=== PATIENT | female | born 1965 | race Caucasian/White ===

== ENCOUNTER 2016-09-26 17:22 | Emergency (ER) | payer OTHER ==
[~2016-09-26] VITALS: Ht 170.2 cm; Wt 102.1 kg
[2016-09-26] MEDS ORDERED: IV NORMAL SALINE 1,000ML 1,000 ML ONE (17:42)
[2016-09-26] MEDS ORDERED: ONDANSETRON PF 4 MG/2 ML VIAL. ONE (17:43)
[2016-09-26] MEDS ORDERED: ONDANSETRON PF 4 MG/2 ML VIAL. IV ONE (18:00)
[2016-09-26] MEDS ORDERED: IV NORMAL SALINE 1,000ML 1,000 ML IV ONE (18:00)
[2016-09-26 18:01] LABS: BASO % 1 % (0-3); EOS % 1 % (0-3); HEMATOCRIT 42.4 % (36.0-47.0); HEMOGLOBIN 14.5 g/dL (12.0-15.5); LYMPH # 1.5 x10^3/uL (1.0-4.8); LYMPH % 19 % (24-48); MEAN CORPUSCULAR HEMOGLOBIN 29 pg (25-35); MEAN CORPUSCULAR HGB CONC 34 g/dL (31-37); MEAN CORPUSCULAR VOLUME 85 fL (79-100); MONO # 0.3 x10^3/uL (0.0-1.1); MONO % 4 % (0-9); NEUT # 6.4 x10^3uL (1.8-7.7); NEUT % 76 % (31-73); PLATELET COUNT 240 x10^3/uL (140-400); RED CELL DISTRIBUTION WIDTH 13.9 % (11.5-14.5); WHITE BLOOD COUNT 8.3 x10^3/uL (4.0-11.0)
--- NOTE | 2016-09-26 18:07 | PHYS DOC ---
General Chief Complaint: ABDOMINAL PAIN Stated Complaint: ABDOMINAL PAIN Time Seen by MD: 17:56 Source: patient Problems: History of Present Illness Initial Comments Patient here for abdominal pain and vomiting. Patient says started about 11:00 today. Pain is located in the epigastric area. She says constant. She's never had pain like this before. She says she had multiple episodes of vomiting, too many to count. There is no blood or bilious material. She's been unable tolerate any by mouth food or fluids today. She's had no real fever or chills. She denies some cough, sore throat, runny nose last several days, but that's actually better today. She denies any chest pain or shortness of breath. She does have the nausea vomiting abdominal pain as described. There is no change in bowel or bladder habits. Her last period was 2 weeks ago. She denies chance of . She is no focal extremity or neurologic complaints. Patient said she felt slightly better after hot baths and hot packs the abdomen did not help. There is no other increasing or decreasing factors and she is done nothing else at home for this. There is no known sick contacts and no bad or spoiled food that she knows of. Asked medical history is otherwise unremarkable. She is a nonsmoker and nonuser of ethanol. She drinks 1-2 cups of coffee daily. She is not significant user T, soda, energy drinks, or aspirins or NSAID medication. There is no family history of ulcer or gallbladder disease. Allergies: Coded Allergies: No Known Drug Allergies (Unverified , 09/26/16) Past Medical History Medical History: no pertinent history Surgical History: other Social History Smoker: non-smoker Alcohol: none Review of Systems All Other Systems: Reviewed and Negative Physical Exam General Appearance: WD/WN, moderate distress Ear, Nose, Throat: normal ENT inspection, normal pharynx Neck: full range of motion, supple, normal inspection Respiratory: lungs clear, normal breath sounds, no respiratory distress Cardiovascular: regular rate, rhythm, no edema Gastrointestinal: soft, no organomegaly, tenderness Back: no CVA tenderness, no vertebral tenderness Extremities: non-tender, normal inspection, no pedal edema Neurologic/Psychiatric: alert, normal mood/affect, oriented x 3 Skin: normal color Lymphatic: no adenopathy Comments Generally this is a moderately obese white female who does look to be mild to moderately uncomfortable with nausea and abdominal pain. Vitals are as noted. Pertinent findings on physical exam shows the neck is supple without adenopathy or JVD. There's no meningeal signs. Chest is clear and cardiac vascular exams unremarkable. The abdomen is soft. She is tender in the epigastric area, mildly so in the right upper quadrant, without masses, organomegaly, or perineal findings. Back shows no CVA tenderness. Extremities are clear. She is awake alert oriented, mildly anxious, but cooperative with exam. Remainder of physical exam is clinically unremarkable. Orders, Labs, Meds Old charts note a single prior ER visit for left arm and elbow pain. CBC and CMP today are clinically unremarkable. Liver function tests are not markedly elevated. Abdominal series films show no acute changes per the emergency physician. Right upper quadrant shows large stones within the gallbladder neck along with signs of acute cholecystitis. There is also dilated common bile duct the possibility of a distal obstructing stone not excluded per radiology. 2100 Patient resting comfortably in the ED. She really had minimal relief with the first dose of fentanyl and Zofran, following Phenergan she's had no further vomiting, and following a second dose of fentanyl she is able to get some rest. I discussed with the patient and her would later arrived in the room the most likely diagnosis of cholecystitis with cholelithiasis. I think there is some possibility of distal biliary tree obstruction, though fortunately her liver tests are not markedly elevated. Given her level of discomfort, think she' ll require admission. The patient and her are agreeable to same. I did discuss with her that since she may require surgical or GI endoscopy care, these are services we will cannot provide here and may be best to transfer her to [place]. They voiced understanding and agreement. I did discuss the case with Dr. Weinstein who concurred that we should send the patient to [place] [facility]. I spoke with Dr. Rodriguez at [facility] who graciously agrees to accept the patient for admission. I will complete transfer paperwork. She is resting comfortably at this time awaiting transfer to [place] and definitive care. ANDREI RICE MD Sep 26, 2016 18:07
[2016-09-26 18:15] LABS: ALBUMIN 4.2 g/dL (3.4-5.0); ALBUMIN/GLOBULIN RATIO 1.1 (1.0-1.7); CALCIUM 9.1 mg/dL (8.5-10.1); CREATININE 0.9 mg/dL (0.6-1.0); GFR 66.5; POTASSIUM 4.1 mmol/L (3.5-5.1); TOTAL BILIRUBIN 0.5 mg/dL (0.2-1.0); TOTAL PROTEIN 8.2 g/dL (6.4-8.2)
[2016-09-26] MEDS ORDERED: PROMETHAZINE 12.5 MG in IV NORMAL SALINE 50ML 50 ML IV PRN (18:15)
[2016-09-26] MEDS ORDERED: FENTANYL PF 100 MCG/2 ML VIAL. ONE (18:16)
[2016-09-26] MEDS ORDERED: PROMETHAZINE 25 MG/ML VIAL IV ONE (18:16)
[2016-09-26] MEDS ORDERED: FENTANYL PF 100 MCG/2 ML VIAL. IV ONE ×3 (18:30→22:30)
[2016-09-26] MEDS ORDERED: IV NORMAL SALINE 100ML 0 ML ONE (18:33)
[2016-09-26] MEDS ORDERED: IV NORMAL SALINE 50ML 50 ML ONE (18:34)
--- NOTE | 2016-09-26 19:30 | RAD ---
PROCEDURE Abdomen sonogram limited. HISTORY Pain. TECHNIQUE Sonographic imaging of the abdomen was performed. COMPARISON None. FINDINGS The liver is upper normal in size. There is hepatic steatosis. No focal hepatic lesion is seen. There is common bile duct dilatation, measuring 8.6 mm. There is a large stone within the gallbladder neck, measuring approximately 3.1 cm. There is gallbladder sludge. The gallbladder is distended and there is gallbladder wall thickening, measuring 5.7 mm. There is a positive sonographic Galarza sign. The right kidney is unremarkable. The inferior vena cava is patent. The pancreas is obscured due to bowel gas. IMPRESSION 1. Large stone within the gallbladder neck with superimposed gallbladder sludge, gallbladder distention, gallbladder wall thickening and a positive sonographic Galarza sign, suggesting cholecystitis. 2. Dilated common bile duct. The possibility of a distal obstructing etiology is not excluded. 3. Hepatic steatosis. Electronically signed by: Kitty Farias (Sep 26, 2016 19:29:25)
[2016-09-26 20:29] VITALS: BP 133/72
[2016-09-26] MEDS ORDERED: AMPICILLIN/SULBACTAM 3 GM in IV NORMAL SALINE 100ML 100 ML IV ONE (21:30)
--- NOTE | 2016-09-27 08:31 | RAD ---
Indication abdominal pain. Nausea and vomiting. Supine and upright films of the abdomen were obtained. No similar imaging is available. The lung bases are clear. The abdominal gas pattern is normal. No organomegaly or abnormal calculi are seen. The visualized bony structures appear grossly intact. IMPRESSION: Normal plain films of the abdomen
--- NOTE | 2016-09-27 12:17 | EKG ---
[address] [address] Test Date: 2016-09-26 Test Time: 18:17:16 Pat Name: RO FARIAS Department: Room: Gender: F Commercial Electrician: NUBIA : 1965 Requested By: ANDREI RICE Order Number: [id number] Reading MD: Aleks Lane Measurements Intervals [place] Rate: 63 P: MT: QRS: 78 QRSD: 80 T: 73 QT: 418 QTc: 431 Interpretive Statements SINUS RHYTHM Electronically Signed On 10-04-2016 14:10:[address]
== END 2016-09-26 22:16 | disposition short-term general hospital (02) ==
LOC: ER 17:22
DX: R10.13 Epigastric pain (principal); R11.2 Nausea with vomiting, unspecified; K80.00 Calculus of gallbladder with acute cholecystitis without obstruction
CPT/HCPCS: 36415; 74020; 76705; 80053; 82150; 83605; 83690; 85027; 93005; 96361; 96365; 96367; 96375; 96376; 99285; J0295; J2405; J2550; J3010; J7030